=== PATIENT | male | born 1990 | race Caucasian/White ===

== ENCOUNTER 2022-06-11 12:48 | Emergency (ER) | payer OTHER ==
[~2022-06-11] VITALS: Ht 172.7 cm; Wt 97.5 kg
== END 2022-06-11 17:45 | disposition home or self-care (01) ==
LOC: ED 12:48
DX: R10.13 Epigastric pain (principal); K21.9 Gastro-esophageal reflux disease without esophagitis; Z79.899 Other long term (current) drug therapy; Z20.822 Contact with and (suspected) exposure to COVID-19
CPT/HCPCS: 36415; 74177; 80053; 81001; 83690; 85025; 87502; 96375; 99284-25; C9803; J1170; J2405; Q9967; U0003